=== PATIENT | male | born 1955 | race Caucasian/White ===

== ENCOUNTER → 2021-12-31 | Outpatient (CLI) | payer OTHER | END | disposition home or self-care (01) | LOC: MRI 12:47 | PROVIDERS: ATTEND Internal Medicine | DX: S83.402A Sprain of unspecified collateral ligament of left knee, initial encounter (principal); M17.12 Unilateral primary osteoarthritis, left knee; M25.462 Effusion, left knee; M94.262 Chondromalacia, left knee; X58.XXXA Exposure to other specified factors, initial encounter; Y93.89 Activity, other specified; Y92.89 Other specified places as the place of occurrence of the external cause; Y99.8 Other external cause status; M25.862 Other specified joint disorders, left knee ==